=== PATIENT | male | born 1975 | race Asian ===

== ENCOUNTER 2022-11-27 09:57 | Emergency (ER) | payer BC, MEDICAID, SELFPAY ==
[2022-11-27 10:06] VITALS: BP 125/78; PULSE 69; RESP 18; TEMP 36.1; O2SAT 98; BMI 23.5
--- NOTE | 2022-11-27 11:23 | ED_ITS ---
HPI - General Adult General Time Seen by Provider: : Date Seen: 11/27/22 Chief complaint: Back Injury/Pain Stated complaint: Lower R back pain Time Seen by Provider: 11/27/22 11:02 Source: patient Mode of arrival: ambulatory Limitations: no limitations History of Present Illness HPI narrative: Patient is a 47-year-old male presenting emergency department for low back pain. States the pain is been going on for 3 weeks since he got back from his trip to [facility]. 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 He went to an outside hospital 3 days ago and was given muscle relaxers and steroids which she says did not help his pain at all. Says the pain has been so bad he has been stuck in bed and unable to go to work. States the pain continues to worsen so he came to the emergency department. Denies bowel or bladder incontinence or retention. Denies numbness or weakness. States the pain does not radiate down his leg. Denies ever having symptoms like this before Related Data Home Medications Medication Instructions Recorded Confirmed cyclobenzaprine 5 mg tablet 5 mg PO 3XD 11/27/22 11/27/22 methylprednisolone 4 mg tablets in 0 mg PO DIRECTED 11/27/22 11/27/22 a dose pack Previous Rx's Medication Instructions Recorded oxycodone 5 mg tablet 5 mg PO Q6H PRN pain #12 tabs 11/27/22 Allergies Allergy/AdvReac Type Severity Reaction Status Date / Time Iodinated Contrast Media Allergy Verified 11/27/22 10:11 Review of Systems Status of ROS: Reports: 6 or more systems reviewed and unremarkable except as noted in History and below PFSH PFS Social History Smoking Status: Never smoker Do you use any of these nicotine containing products: None How often do you have a drink containing alcohol: never How often do you have six or more drinks on one occasion: Never AUDIT-C Alcohol total score: 0 Non-prescribed substance use: denies use service: No Exam Narrative: Exam Narrative: Const: Well-nourished, Well-developed, in mild distress Eyes: PERRL, no conjunctival injection, and symmetrical lids ENMT: Atraumatic external nose and ears. Moist mucous membranes. MSK:Extremities w/o deformity, Normal Active ROM. Tenderness noted to palpation the right lower paraspinal muscles just above the medial portion of the iliac crest. Negative straight leg test on the left. Had mild pain with straight leg test on the right Skin: Warm, Dry. No rashes or lesions. Neuro: Normal Muscle tone, No focal neurological deficits. Psych: Awake, Alert, & Oriented x3. Appropriate mood and affect. Const: Vital Signs, click to edit/add: Vital Signs - 24 hr 11/27/22 10:06 Temperature 96.9 F L Pulse Rate [Pulse Oximeter] 69 Respiratory Rate 18 Blood Pressure [Ri t Upper Arm] 125/78 Pulse Oximetry 98 Oxygen Delivery Me thod Room Air Course Vital Signs Vital signs: Initial Vital Signs Temperature 96.9 F L 11/27/22 10:06 Temperature Source Temporal Artery Scan 11/27/22 10:06 Pulse Rate 69 11/27/22 10:06 Respiratory Rate 18 11/27/22 10:06 Blood Pressure 125/78 11/27/22 10:06 Blood Pressure Mean 93 11/27/22 10:06 Blood Pressure Position Sitting 11/27/22 10:06 Pulse Oximetry 98 11/27/22 10:06 Oxygen Delivery Method Room Air 11/27/22 10:06 Vital Signs Temperature 96.9 F L 11/27/22 10:06 Pulse Rate 69 11/27/22 10:06 Respiratory Rate 18 11/27/22 10:06 Blood Pressure 125/78 11/27/22 10:06 Pulse Oximetry 98 11/27/22 10:06 Oxygen Delivery Method Room Air 11/27/22 10:06 Temperature 96.9 F L 11/27/22 10:06 Pulse Rate 69 11/27/22 10:06 Respiratory Rate 18 11/27/22 10:06 Blood Pressure 125/78 11/27/22 10:06 Pulse Oximetry 98 11/27/22 10:06 Oxygen Delivery Method Room Air 11/27/22 10:06 Medical Decision Making [facility] Narrative Medical decision making narrative: Patient is a 47-year-old male presenting for low back pain. Pain is going for 3 weeks. He has not have any red flag symptoms and got equina is very unlikely at this time. States the pain is more in the paraspinal muscles on the right side. Does not appear to have herniated disc since straight leg test were otherwise negative. All he did the pain with straight leg raise on the right again the pain is more paraspinal. He is not having any radiation of the pain. Considering the pain is we difficult for him to work? give him some pain medication. He is not have a primary care provider in the area and will give him information to the primary care. We also gave him information for adaptive physical education specialist in neck/back/spine clinic. We tried to set up an appointment for him but then nothing available for 2 weeks. Patient was sent home with a couple days of pain medication. I informed him to stay active. Discharge Plan Discharge Clinical Impression: Strain of lumbar region Qualifiers: Encounter type: initial encounter Qualified Code(s): S39.012A - Strain of muscle, fascia and tendon of lower back, initial encounter Patient Disposition: Home, Self-Care Condition: Stable Instructions: Low Back Strain (ED), P.R.I.C.E. Treatment (ED) Additional Instructions: Near given information to set up primary care provider in the area. Also follow-up with [place] neck/back/referral specialist. You can also call the [facility] and [phone], [facility] at [phone] or any other back and referral specialist you could find. Continue to take Tylenol and ibuprofen for your back pain also. Prescriptions: New oxycodone 5 mg tablet 5 mg PO Q6H PRN (Reason: pain) Qty: 12 0RF No Action methylprednisolone 4 mg tablets,dose pack 0 mg PO DIRECTED cyclobenzaprine 5 mg tablet 5 mg PO 3XD Follow Up/Referrals: Provider,Not a Local [Primary Care Provider] - Stand Alone Forms: [employer] Info Instructions
[2022-11-27] MEDS: OXYCODONE 5 MG TABLET PO (11:52)
[2022-11-27 12:08] VITALS: BP 125/78; PULSE 69; RESP 18; TEMP 36.1
== END 2022-11-27 12:09 | disposition home or self-care (01) ==
LOC: ED 11:42
PROVIDERS: Emergency Provider Student in an Organized Health Care Education/Training Program
DX: S39.012A Strain of muscle, fascia and tendon of lower back, initial encounter (principal)
CPT/HCPCS: 99282; 99283; A9270